=== PATIENT | female | born 1990 | race Caucasian/White ===

== ENCOUNTER 2018-05-21 13:00 | Emergency (ER) | payer OTHER ==
--- NOTE | 2018-05-21 14:12 | EDPHY ---
H & P Stated Complaint: heavier than normal vag bleed, pelvic cramps, IUD x 3 years Time Seen by Provider: 05/21/18 14:12 HPI/ROS: CHIEF COMPLAINT: Dysfunctional uterine bleeding, pelvic cramping HISTORY OF PRESENT ILLNESS: The patient presents to the ED for evaluation of symptoms including pelvic cramping, dysfunctional uterine bleeding for the past 30 days and evaluation of IUD placement. The patient denies any history of vaginal trauma. She denies any fever or dysuria. She denies any recent pelvic surgery. Patient denies significant past medical history. The patient was referred to the ED by her primary care provider for a pelvic ultrasound. She currently reports 2/10 crampy bilateral pelvic pain. REVIEW OF SYSTEMS: A comprehensive 10 point review of systems is otherwise negative aside from elements mentioned in the history of present illness. Source: Patient Exam Limitations: No limitations - Personal History LMP (Females 10-55): IUD In Place - Medical/Surgical History Hx Asthma: No Hx Chronic Respiratory Disease: No Hx Diabetes: No Hx Cardiac Disease: No Hx Renal Disease: No Hx Cirrhosis: No Hx Alcoholism: No Hx HIV/AIDS: No Hx Splenectomy or Spleen Trauma: No Other PMH: asthma. insulin resistance - Social History Smoking Status: Never smoked - Physical Exam Exam: General Appearance: Alert, no distress Eyes: Pupils equal and round no pallor or injection ENT, Mouth: Mucous membranes moist Respiratory: There are no retractions, lungs are clear to auscultation Cardiovascular: Regular rate and rhythm Gastrointestinal: [Abdomen is soft and nontender, no masses, bowel sounds normal, minimal bilateral lower pelvic tenderness Neurological: 5/5 strength noted all 4 extremities Skin: Warm and dry, no rashes Musculoskeletal: Neck is supple nontender Extremities: symmetrical, full range of motion Constitutional: Initial Vital Signs Temperature (C) 36.7 C 05/21/18 13:06 Heart Rate 91 05/21/18 13:06 Respiratory Rate 20 05/21/18 13:06 Blood Pressure 127/91 H 05/21/18 13:06 O2 Sat (%) 94 05/21/18 13:06 O2 Delivery Mode Room Air Allergies/Adverse Reactions: ciprofloxacin Allergy (Verified 05/21/18 13:03) Penicillins Allergy (Verified 05/21/18 13:03) Home Medications: Medication Instructions Recorded Buspar (*) 05/21/18 Levothyroxine 05/21/18 Metformin 1000 mg 05/21/18 Prilosec 05/21/18 Ritalin 10mg (*) 05/21/18 Symbicort 160-4.5 Mcg Inh (*) 05/21/18 Medical Decision Making - Diagnostics Imaging Results: Pelvic ultrasound: IUD in normal position, no ovarian cyst, no torsion, no significant abnormality aside from questionable small uterine polyp. ED Course/Re-evaluation: The patient presents to the ED for intermittent vaginal bleeding and mild pelvic cramping for the past month. The patient's test is negative. I find her abdominal examination to be benign. She has no symptoms of a UTI and reports no history of any pelvic trauma. The patient is noted to have no evidence of an anemia or fever. Pelvic ultrasound demonstrates normal IUD positioning. Ovaries appear normal. There is a questionable small uterine polyp. I did review the patient's workup here in the emergency department today. At this point time I feel she can continue to use Tylenol and ibuprofen as needed for pain. She should follow up with her primary care provider for any unimproved symptoms. The patient will be discharged home with instructions to return to the ED for markedly worsening symptoms or other concerns. Differential Diagnosis: Differential diagnosis considered includes IUD migration, ectopic , critical anemia, ovarian cyst, ovarian torsion - Data Points Laboratory Results: Laboratory Results 05/21/18 15:05 05/21/18 14:25 05/21/18 05/21/18 05/21/18 15:05 14:25 14:25 WBC 8.03 10^3/uL 10^3/uL (3.80-9.50) RBC 5.06 10^6/uL 10^6/uL (4.18-5.33) Hgb 14.4 g/dL g/dL (12.6-16.3) Hct 42.1 % % (38.0-47.0) MCV 83.2 fL fL (81.5-99.8) MCH 28.5 pg pg (27.9-34.1) MCHC 34.2 g/dL g/dL (32.4-36.7) RDW 12.3 % % (11.5-15.2) Plt Count 263 10^3/uL 10^3/uL (150-400) MPV 9.7 fL fL (8.7-11.7) Neut % (Auto) 67.9 % % (39.3-74.2) Lymph % (Auto) 25.7 % % (15.0-45.0) [place] % (Auto) 4.9 % % (4.5-13.0) Eos % (Auto) 0.9 % % (0.6-7.6) Baso % (Auto) 0.4 % % (0.3-1.7) Nucleat RBC Rel Count 0.0 % % (0.0-0.2) Absolute Neuts (auto) 5.46 10^3/uL 10^3/uL (1.70-6.50) Absolute Lymphs (auto) 2.06 10^3/uL 10^3/uL (1.00-3.00) Absolute Monos (auto) 0.39 10^3/uL 10^3/uL (0.30-0.80) Absolute Eos (auto) 0.07 10^3/uL 10^3/uL (0.03-0.40) Absolute Basos (auto) 0.03 10^3/uL 10^3/uL (0.02-0.10) Absolute Nucleated RBC 0.00 10^3/uL 10^3/uL (0-0.01) Immature Gran % 0.2 % % (0.0-1.1) Immature Gran # 0.02 10^3/uL 10^3/uL (0.00-0.10) Sodium 139 mEq/L mEq/L (135-145) Potassium 4.7 mEq/L mEq/L (3.3-5.0) Chloride 107 mEq/L mEq/L (97-110) Carbon Dioxide 20 mEq/l L mEq/l (22-31) Anion Gap 12 mEq/L mEq/L (8-16) BUN 19 mg/dL mg/dL (7-23) Creatinine 1.0 mg/dL mg/dL (0.6-1.0) Estimated GFR > 60 Glucose 89 mg/dL mg/dL (70-100) Calcium 9.7 mg/dL mg/dL (8.5-10.4) Beta HCG, Qual NEGATIVE 05/21/18 14:25 WBC REJ RBC REJ Hgb REJ Hct REJ MCV REJ MCH REJ MCHC REJ RDW REJ Plt Count REJ MPV REJ Neut % (Auto) REJ Lymph % (Auto) REJ [place] % (Auto) REJ Eos % (Auto) REJ Baso % (Auto) REJ Nucleat RBC Rel Count REJ Absolute Neuts (auto) REJ Absolute Lymphs (auto) REJ Absolute Monos (auto) REJ Absolute Eos (auto) REJ Absolute Basos (auto) REJ Absolute Nucleated RBC REJ Immature Gran % REJ Immature Gran # REJ Sodium Potassium Chloride Carbon Dioxide Anion Gap BUN Creatinine Estimated GFR Glucose Calcium Beta HCG, Qual Departure - Departure Disposition: Home, Routine, Self-Care Clinical Impression: Dysfunctional uterine bleeding Condition: Good Instructions: Dysfunctional Uterine Bleeding (ED) Additional Instructions: 1. Tylenol and ibuprofen as needed for pain. 2. Please follow up with your primary care provider for any unimproved symptoms. 3. Your ultrasound demonstrates no evidence of an acute abnormality or malposition of your IUD. 4. Please return to the ED for markedly worsening pain, fever, heavy bleeding or other concerns. Referrals: Carol Crespo MD [Primary Care Provider] - As per Instructions
[2018-05-21 15:11] LABS: PLATELET COUNT 263 10^3/uL (150-400)
[2018-05-21 15:44] VITALS: BP 135/70
== END 2018-05-21 15:44 | disposition home or self-care (01) ==
DX: N93.8 Other specified abnormal uterine and vaginal bleeding (principal); Z30.431 Encounter for routine checking of intrauterine contraceptive device

== ENCOUNTER → 2018-09-03 | Outpatient (CLI) | payer OTHER | LOC: FIMAGING 06:45 | PROVIDERS: ATTEND Nurse Practitioner Family | DX: R10.11 Right upper quadrant pain (principal); R16.1 Splenomegaly, not elsewhere classified ==

== ENCOUNTER → 2019-02-05 | Outpatient (CLI) | payer OTHER | LOC: FIMAGING 08:20 | PROVIDERS: ATTEND Nurse Practitioner Family | DX: R11.2 Nausea with vomiting, unspecified (principal); K21.9 Gastro-esophageal reflux disease without esophagitis ==